=== PATIENT | female | born 1995 | race Caucasian/White ===

== ENCOUNTER → 2016-11-26 | Outpatient (CLI) | payer BC ==
[2016-11-26 13:45] LABS: HEMOGLOBIN 13.9 g/dL (12.0-16.0); RDW COEFFICIENT OF VARIATION 13.1 % (11.5-14.5)
[2016-11-26 13:51] LABS: HEMATOCRIT 41.5 % (37.0-47.0); MEAN CORPUSCULAR HEMOGLOBIN 28.7 PG (27-31); MEAN CORPUSCULAR HGB CONC 33.5 g/dL (33-37); MEAN PLATELET VOLUME 9.9 FL (7.4-12.2); RED BLOOD COUNT 4.85 10^6/uL (4.20-5.40); WHITE BLOOD COUNT 16.07 10^3/uL (4.8-10.8)
[2016-11-26 14:18] LABS: BLOOD UREA NITROGEN 10 mg/dL (7-22); BUN/CREATININE RATIO 14.28 (6-20); CALCIUM 9.7 mg/dL (8.7-10.7); CHLORIDE 105 meq/L (98-112); CREATININE 0.7 mg/dL (0.50-1.20); EST GLOMERULAR FILTRATION > 60 (>60 ml/min/1.73m(2)); GLUCOSE 81 mg/dL (78-110); POTASSIUM 4.1 meq/L (3.8-5.2); SODIUM 139 meq/L (135-145)
[2016-11-26 14:32] LABS: PLATELET MORPHOLOGY COMMENT NORMAL MORPHOLOGY (NORM)
[2016-11-26 14:33] LABS: BAND NEUTROPHILS % 0 % (0-10); BASOPHILS % (MANUAL) 1 % (0-1); EOSINOPHILS % (MANUAL) 0 % (0-8); LYMPHOCYTES % (MANUAL) 37 % (10-50); METAMYELOCYTES % 0 %; MONOCYTES % (MANUAL) 3 % (0-12); MYELOCYTES % 0 %; NEUTROPHILS % (MANUAL) 59 % (50-80); PROMYELOCYTES % 0 %
--- NOTE | 2016-11-26 16:44 | DI ---
CT ABDOMEN SCAN WITH IV CONTRAST, 11/26/2016 3:23 PM : Clinical History: Abdominal pain. Previous Exam: None at this facility. Scans are performed from the lower lung bases through the liver and kidneys with IV contrast. 95 ml o f Isovue 300 was injected IV. No rectal or oral contrast was ordered. The lung bases are clear. The liver is normal. The gallbladder is grossly normal. There is no abnorma lity of the spleen, pancreas, and adrenal glands. Both kidneys are normal in size, shape, position an d contour. There is no hydronephrosis or hydroureter. No renal or ureteral calculi are present. There are no abnormal retrocrural or periaortic nodes. No ascites is present. READING: Normal CT abdomen scan. CT PELVIS SCAN WITH IV CONTRAST, 11/26/2016 3:23 PM: Clinical History: See above. Previous Exam: None at this facility. Scans are performed from just superior to the umbilicus to the symphysis pubis with IV contrast. This is the same bolus of contrast used for the CT scans of the abdomen. Scans through the lower abdomen and pelvis show no masses or abnormal fluid collections. There is no adenopathy. 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 The appendix extends toward the right lower quadrant and has a normal caliber and ewa earance. The maximum diameter is between 7-8 mm. No periserosal inflammatory/infiltrative change is p resent. The remainder of the colon as well as the small bowel and terminal ileum are normal. There is a small umbilical hernia through which only mesenteric fat has herniated. The uterus is retroflexed. The uterus and both ovaries are normal. READING: Normal CT scan of the pelvis.
== END ==
LOC: MOB LAB 13:27
PROVIDERS: ATTEND Physician Assistant Medical
DX: R10.84 Generalized abdominal pain (principal)
CPT/HCPCS: 36415; 74177; 80048; 85007; 87480; 87491; 87510; 87591; 87660

== ENCOUNTER 2016-11-27 14:36 | Inpatient (IN) | payer BC ==
[2016-11-27] MEDS ORDERED: NORMAL SALINE 10 ML SYRINGE FLUSH IVP PRN (14:57)
[2016-11-27] MEDS ORDERED: ONDANSETRON 4 MG/2 ML VIAL IVP ONE (14:57)
[2016-11-27] MEDS ORDERED: MORPHINE SULFATE 2 MG/1 ML IV ONE (14:57)
[2016-11-27] MEDS ORDERED: Sodium Chloride 0.9% 1,000 ML PRIMARY IV ONE (14:57)
--- NOTE | 2016-11-27 14:57 | PDOC ---
Abdomen/Flank HPI - General Chief Complaint: Abdomen Pain Stated Complaint: lower abd pain Date Seen by Provider: 11/27/16 Time Seen by Provider: 14:50 Source: POSITIVE: Patient Exam Limitations: POSITIVE: No limitations Nurse's Notes Reviewed & Considered: Yes - History of Present Illness Initial Comments: The patient is a 21-year-old female who presents to the emergency department with worsening right-sided lower abdominal pain. She states that she had onset of right lower quadrant abdominal pain 2 days ago. She presented to the walk- in clinic yesterday with primarily right lower quadrant pain and lower abdominal pain. She underwent fairly extensive workup including blood work, pelvic exam and urinalysis. Her white blood cell count was found to be elevated at 16,000. Her urine hCG was negative, GC chlamydia was negative, vaginosis profile was negative, and the remainder of her blood work was also normal. She underwent CT scan of the abdomen and pelvis which revealed a normal -appearing appendix measuring 7-8 mm with no inflammatory change. She was sent home with prescriptions for Percocet as well as Zofran. She states that her pain has intensified over the past 24 hours. She has sharp pain in the right lower quadrant and some vague dull pain across her lower abdomen. She also has increased nausea and decreased appetite. She tried to eat a little bit at lunch which caused increased nausea as well as increased pain. She thought she had a low-grade fever at home. She denies urinary symptoms. She has not had any change in bowel movements or blood in her stool. She was having a small amount of brownish vaginal discharge however this seems to have resolved for the most part today. She reports during the pelvic exam yesterday she did not have any apparent tenderness over the uterus when they palpated. She has had 2 previous C-sections and denies any other abdominal surgery. - Patient Home Medications Home Medications: Home Medications Norgestimate-Ethinyl Estradiol [Previfem Tablet] 1 tab PO ASDIR #3 packet Ondansetron [Zofran Odt] 4 mg PO TID #9 tab 11/26/16 Oxycodone HCl/Acetaminophen [Percocet 5-325 Mg Tablet] 1 tab PO Q6H #20 tab - Patient Allergies Allergies/Adverse Reactions: Allergies Allergy/AdvReac Type Severity Reaction Status Date / Time No Known Allergies Allergy Verified 11/27/16 14:45 Past Medical History - heen HEENT History: Denies History Cardiovascular History: Denies History Respiratory History: Asthma Gastrointestinal History: Denies History Genitourinary History: Denies History Endocrine History: Denies History Additional Endocrine History: Per pt borderline diabetic no meds Musculoskeletal History: Denies History Prosthesis or Implant: No Additional Musculoskeletal History: RIGHT KNEE PAIN Neurological History: Denies History Blood Disorders: Denies History Psychiatric History: Denies History History of Sexually Transmitted Diseases: Yes LMP: 11/16/16 Obstetrical History: Delivery Cancer History: Denies History In Past Year Been Physically Harmed or Verbally Threatened: No History of MDRO: No History of Other Communicable Diseases: No Tobacco Use: Never Smoker Alcohol Use: None Substance Use Type: None Previous Surgical History: Yes Type / Date of Surgery: C SECTION Anesthesia Reactions: No Malignant Hyperthermia: No Significant Family History: No pertinent family hx, Hypertension Additional Family History: Father Spina Bifida and Uncle Past Medical History Reviewed: Reviewed - No Changes ROS - Limitations ROS Limitations: No Limitations Constitution: REPORTS: Fever (Low-grade fever at home). DENIES: Chills Cardiovascular: REPORTS: Denies Cardiac Symptoms Respiratory: REPORTS: Denies Resp Symptoms Neurological: REPORTS: Denies Neuro Symptoms Gastrointestinal: REPORTS: Abdominal Pain, Nausea, Vomitting. DENIES: Diarrhea , Black Stools, Bloody Stools, Constipation Endocrine: REPORTS: Denies Symptoms Musculoskeletal: REPORTS: Denies MS Symptoms Genitourinary: REPORTS: Discharge (Some brownish vaginal discharge after her last menstrual period although this is resolving today). DENIES: Dysuria, Flank Pain, Difficulty Urinating Eyes: REPORTS: Denies Symptoms ENT: REPORTS: Denies Symptoms Skin: DENIES: Rash Abdominal/Flank Pain PE - General Appearance General Appearance: POSITIVE: Alert, Cooperative, No Acute Distress - HEENT HEENT: POSITIVE: Head Inspection Nml, Eyes Inspection Nml, Ears Inspection Nml, Oral/Dental Inspect. Nml, Pharynx Inspect. Nml, Dry Mucous Membranes - Neck Neck: POSITIVE: Normal Inspection - Respiratory Respiratory: POSITIVE: No Respiratory Distress, Breath Sounds Normal - Cardiovascular Cardiovascular: POSITIVE: Regular Rate and Rhythm, Heart Sounds Normal Peripheral Pulses: Dorsalis-pedis (R): 2+, Dorsalis-pedis (L): 2+ - Abdomen Abdomen: Soft: (All Quadrants), Normal Bowel Sounds: (All Quadrants) Additional Abdominal Details: She does have tenderness in the right lower quadrant with some localized rebound tenderness, she does have some pain in the right lower quadrant with palpation to the left lower abdomen, she does have pain with heel tap on the right side, no guarding or rigidity. - Back Back: POSITIVE: Normal Inspection. NEGATIVE: CVA Tenderness (R), CVA Tenderness (L) - Skin Skin: POSITIVE: Intact, No Rash - Extremities Extremity: Normal ROM: (All Extremities), Normal Inspection: (All Extremities) - Neurological Neurological: POSITIVE: Affect Apporpriate Abdomen Progress - Results Reviewed by me Xrays/CTs/US Reviewed by me: Yes Discussed with Radiologist: Yes Radiology Findings: CT scan of the abdomen and pelvis done without IV contrast reveals similar findings to yesterday, appendix measuring 7.5 mm with no evidence of inflammatory change, she does have diverticulosis without evidence of diverticulitis, no other acute changes per radiologist. Lab Results Reviewed: Yes Lab Results:: Laboratory Results 11/27/16 11/27/16 Range/Units 14:45 15:06 WBC 14.92 H (4.8-10.8) 10^3/uL RBC 4.63 (4.20-5.40) 10^6/uL Hgb 13.5 (12.0-16.0) g/dL Hct 39.6 (37.0-47.0) % MCV 85.5 (81-99) FL MCH 29.2 (27-31) PG MCHC 34.1 (33-37) g/dL RDW Std Deviation 39.8 (39-50) fL RDW Coeff of [place] 13.0 (11.5-14.5) % Plt Count 408 H (140-350) 10*3/uL MPV 9.6 (7.4-12.2) FL Immature Gran % (Auto) 0.4 (0-5) % Neut % (Auto) 62.2 (50-80) % Lymph % (Auto) 31.2 (10-50) % [place] % (Auto) 4.5 L (5-15) % Eos % (Auto) 1.3 (0-8) % Baso % (Auto) 0.4 (0-1) % Immature Gran # (Auto) 0.06 10*3/UL Neut # (Auto) 9.29 10*3/UL Lymph # (Auto) 4.65 10*3/uL [place] # (Auto) 0.67 (0.3-0.8) 10*3/UL Eos # (Auto) 0.19 10*3/UL Baso # (Auto) 0.06 10*3/UL WBC Morphology Comment Normal morphology (NORM) Plt Morphology Comment Normal morphology (NORM) RBC Morph Comment Normal morphology (NORM) Sodium 137 (135-145) meq/L Potassium 4.1 (3.8-5.2) meq/L Chloride 103 (98-112) meq/L Carbon Dioxide 25 (23-33) meq/L Anion Gap 9 (5-20) BUN 11 (7-22) mg/dL Creatinine 0.7 (0.50-1.20) mg/dL Estimated GFR > 60 (>60 ml/min/1.73m(2)) BUN/Creatinine Ratio 15.71 (6-20) Glucose 101 (78-110) mg/dL Calculated Osmolality 282.0 (267-292) mOsm/kg Calcium 9.1 (8.7-10.7) mg/dL Total Bilirubin 0.3 (0.3-1.2) mg/dL AST 23 (8-39) IU/L ALT 32 (9-52) IU/L Alkaline Phosphatase 72 (38-126) IU/L C-Reactive Protein 1.6 H (0.0-0.9) mg/dL Total Protein 7.3 (6.1-8.0) g/dL Albumin 4.1 (3.5-4.8) g/dL Globulin 3.2 (2.50-4.10) g/dL Albumin/Globulin Ratio 1.20 L (1.3-2.0) mg/g Amylase 65 (30-110) U/L Lipase 37 (23-300) IU/L Serum HCG, Qual Negative Ur Collection Type Voided specimen Urine Color Yellow Urine Clarity Clear (CLEAR) Urine pH 6.5 (5.0-8.5) Ur Specific [place] 1.020 (1.005-1.030) Urine Protein Negative (NEG) mg/dl Urine Glucose (UA) Negative (NEG) mg/dL Urine Ketones Trace (NEG) Urine Occult Blood Small H (NEG) Urine Nitrate Negative (NEG) Urine Bilirubin Negative (NEG) Urine Urobilinogen 0.2 (0.2) EU/dL Ur Leukocyte Esterase Negative (NEG) Urine RBC 1-3 (NONE) /hpf Urine WBC 0-1 (NONE) Ur Squamous Epith Cells Moderate (NONE) Ur Renal Epithelial Cell None (NONE) Urine Crystals None Urine Bacteria Rare (NONE) Urine Casts Rare (NONE) Urine Mucus Few (NONE) Urine Trichomonas None (NONE) Urine Yeast None (NONE) Ur Culture Indicated? Culture not set - Patient's Progress MDM / ED Course: On arrival the patient was rating her pain an 8 out of 10 and she appeared to be uncomfortable. An IV was established and repeat blood work was drawn. She did receive morphine 4 mg IV and Zofran 4 mg IV. Because of her ongoing right lower quadrant abdominal pain and elevated white count I did contact Dr. Thapa who is on-call for general surgery. He recommended repeat CT scan. I discussed this with Dr. Lino and he recommended we repeat this without contrast. This was done and did not show any acute findings. Her appendix still measures between 7 and 8 mm with no obvious inflammatory change, diverticulosis without evidence of diverticulitis and no other acute findings. Her white count is still mildly elevated at 14.5. Current CT findings were discussed with Dr. Thapa and he will evaluate the patient here in the emergency room. Her pain after administration of morphine came down to a 5 out of [address] her nausea improved. Dr. Thapa evaluated the patient and elected to admit the patient for observation and giving her a dose of Invanz 1 g IV. - Consult Counseled: POSITIVE: Patient, Family, RE: Lab Results, RE: Radiology Results, RE : DX Patient Care Time - Estimated PCT Patient Care Time (In Minutes): 35 Vital Signs - Recent Vital Signs Vital Signs: Vital Signs (Last 8 hours) Temp Pulse Resp BP BP Pulse Ox 11/27/16 18:58 97.1 F 78 20 123/84 98 11/27/16 15:50 74 16 100/86 94 11/27/16 14:43 97.9 F 91 18 132/77 96 - VS Reviewed Vital Signs Reviewed: Yes Discharge Clinical Impression: Abdominal pain, Leukocytosis (leucocytosis) Discharge Disposition: Admit to Observation Condition: Stable
[2016-11-27 15:08] LABS: HEMOGLOBIN 13.5 g/dL (12.0-16.0); IMM GRAN % (AUTO) 0.4 % (0-5); IMM GRAN# (AUTO) 0.06 10*3/UL; MONOCYTES % (AUTO) 4.5 % (5-15)
[2016-11-27 15:12] LABS: BASOPHILS # (AUTO) 0.06 10*3/UL; BASOPHILS % (AUTO) 0.4 % (0-1); EOSINOPHILS % (AUTO) 1.3 % (0-8); HEMATOCRIT 39.6 % (37.0-47.0); LYMPHOCYTES # (AUTO) 4.65 10*3/uL; LYMPHOCYTES % (AUTO) 31.2 % (10-50); MEAN CORPUSCULAR HEMOGLOBIN 29.2 PG (27-31); MEAN CORPUSCULAR HGB CONC 34.1 g/dL (33-37); MEAN PLATELET VOLUME 9.6 FL (7.4-12.2); MONOCYTES # (AUTO) 0.67 10*3/UL (0.3-0.8); NEUTROPHILS # (AUTO) 9.29 10*3/UL; NEUTROPHILS % (AUTO) 62.2 % (50-80); RED BLOOD COUNT 4.63 10^6/uL (4.20-5.40); WHITE BLOOD COUNT 14.92 10^3/uL (4.8-10.8)
[2016-11-27 15:20] LABS: AMYLASE 65 U/L (30-110); ASPARTATE AMINO TRANSFERASE 23 IU/L (8-39); BILIRUBIN,TOTAL 0.3 mg/dL (0.3-1.2); BLOOD UREA NITROGEN 11 mg/dL (7-22); BUN/CREATININE RATIO 15.71 (6-20); C-REACTIVE PROTEIN 1.6 mg/dL (0.0-0.9); CALCIUM 9.1 mg/dL (8.7-10.7); CHLORIDE 103 meq/L (98-112); CREATININE 0.7 mg/dL (0.50-1.20); EST GLOMERULAR FILTRATION > 60 (>60 ml/min/1.73m(2)); GLUCOSE 101 mg/dL (78-110); POTASSIUM 4.1 meq/L (3.8-5.2); SODIUM 137 meq/L (135-145); TOTAL PROTEIN 7.3 g/dL (6.1-8.0)
[2016-11-27 15:33] LABS: PLATELET MORPHOLOGY COMMENT NORMAL MORPHOLOGY (NORM)
[2016-11-27 15:34] LABS: CLARITY,URINE CLEAR (CLEAR); URINE SAMPLE TYPE VOIDED SPECIMEN
[2016-11-27 15:35] LABS: BILIRUBIN,URINE NEGATIVE (NEG); GLUCOSE, URINE (UA) NEGATIVE (NEG); LEUKOCYTE ESTERASE ,URINE NEGATIVE (NEG); NITRATE,URINE NEGATIVE (NEG); OCCULT BLOOD,URINE SMALL (NEG); PH,URINE 6.5 (5.0-8.5); PROTEIN,URINE NEGATIVE (NEG); UROBILINOGEN,URINE 0.2 EU/dL (0.2)
[2016-11-27 15:36] LABS: BACTERIA,URINE RARE; SQUAMOUS EPITHELIAL CELL,UR MODERATE; WBC,URINE 0-1
[2016-11-27] MEDS: Ertapenem Inj 1 GM in Sodium Chloride 0.9% 100 ML IV ONE ×2 (18:20→22:26)
--- NOTE | 2016-11-27 18:26 | PDOC ---
History and Physical - History of Present Illness Date and Time of Service: 11/27/2016 6 PM. Chief Complaint: Abdominal pain and nausea. History of Present Illness: Patient is a 21-year-old female who reports problems started on Saturday in the late morning or early afternoon. She had some central abdominal pain. This was associated with nausea. There was no vomiting, fever, chills, diarrhea, or constipation. She ate some. She had a normal bowel movement. She went to bed and slept fairly well through the night. She woke up yesterday with increased pain and nausea. The pain seemed to move a little more to the right side. She was seen in the open access clinic. Her white count was elevated at 16,000. CT abdomen and pelvis showed a malrotation with the cecum in the midline. She had an appendix at 7-8 mm in size without periappendiceal inflammation. She had a pelvic examination that was nontender. Vaginitis panel and chlamydia workup were negative. She was given Percocet and Zofran and sent home. Her urinalysis and test were also unremarkable. She reports she did not sleep well last night. She woke this morning with increased abdominal pain and nausea only. Again the pain was in the right side in an ascending fashion. She was nauseated. She had no appetite. There was no vomiting, fever, chills, diarrhea, or constipation. She presented to the emergency room. She was given some morphine and it decreased her pain from an 8 out of 10 to a 5 out of 10. Labs again the were essentially all unremarkable with the exception of her white count which was still elevated at 14,900. Urinalysis and test were normal. Follow-up CT was done. Again the appendix is seen in the midline. The appendix is bright. There is either calcifications within the appendix or calcium from tums or other antacids. There is no evidence of appendicitis. There is no inflammation in her abdomen. There is no free air or free fluid. She does have a few diverticuli of the colon. There was a moderate amount of stool within the colon. I am asked to see her for evaluation. The present time patient appears quite comfortable. She says her pain is still a 5 out of 10. She still has some mild nausea Past Medical History Medical History: Denies any significant medical problems. Surgical History: 2. Ear tubes. Tobacco Use: Never Smoker Substance Use Type: None Alcohol Use: None Medication / Allergies Home Medications: Home Medications Medication Instructions Recorded Confirmed Type Norgestimate-Ethinyl Estradiol 1 tab PO ASDIR #3 packet 09/25/16 Clinic [Previfem Tablet] Ondansetron [Zofran Odt] 4 mg PO TID #9 tab 11/26/16 Clinic Oxycodone HCl/Acetaminophen 1 tab PO Q6H #20 tab 11/26/16 Clinic [Percocet 5-325 Mg Tablet] Allergies/Adverse Reactions: Allergies Allergy/AdvReac Type Severity Reaction Status Date / Time No Known Allergies Allergy Verified 11/27/16 14:45 Review of Systems - Gastrointestinal Gastrointestinal / Abdominal: REPORTS: Nausea, Abdominal Pain, Poor Appetite, See HPI Exam - Vitals Vital Signs: Vital Signs Temperature 97.9 F Temperature Source Temporal Artery Scan Pulse Rate [Pulse Oximeter 74 Right] Respiratory Rate 16 Blood Pressure [Right Arm] 100/86 Blood Pressure [Left Arm] 132/77 Pulse Ox 94 Oxygen Delivery Method Room Air Height 5 ft 3 in Weight 99.79 kg - General General Appearance: POSITIVE: No Acute Distress, Cooperative - Respiratory Respiratory Exam: POSITIVE: Clear to Auscultation - Bilaterally, Breathing Non Labored - Cardiovascular Cardiovascular Exam: POSITIVE: RRR, No Murmur - GI/Abdominal GI/Abdominal Exam: POSITIVE: Normal Bowel Sounds, Non Distended, Soft, No Masses Additional GI/Abdominal Exam Details: Abdomen is soft. Patient reports tenderness in the left lower quadrant, suprapubic region, and right lower quadrant. There is no guarding or rebound. There is no signs of peritoneal irritation. The exam is certainly not focal at this time. There is no costovertebral angle tenderness. - Rectal Rectal Exam: POSITIVE: Deferred - Exam: POSITIVE: Deferred (Done yesterday in the open access clinic. Nontender. Vaginitis workup negative.) - Neurological Neurological Exam: POSITIVE: Alert, Oriented x 3 - Psychiatric Psychiatric Exam: POSITIVE: Normal Affect, Normal Mood - Integumentary Integumentary Exam: POSITIVE: Normal Color, Warm, Dry, Intact Results - Labs CBC and BMP: 11/27/16 15:06 11/27/16 15:06 Labs - Last 24 Hours: Laboratory Results 11/27/16 11/27/16 Range/Units 14:45 15:06 WBC 14.92 H (4.8-10.8) 10^3/uL RBC 4.63 (4.20-5.40) 10^6/uL Hgb 13.5 (12.0-16.0) g/dL Hct 39.6 (37.0-47.0) % MCV 85.5 (81-99) FL MCH 29.2 (27-31) PG MCHC 34.1 (33-37) g/dL RDW Std Deviation 39.8 (39-50) fL RDW Coeff of [place] 13.0 (11.5-14.5) % Plt Count 408 H (140-350) 10*3/uL MPV 9.6 (7.4-12.2) FL Immature Gran % (Auto) 0.4 (0-5) % Neut % (Auto) 62.2 (50-80) % Lymph % (Auto) 31.2 (10-50) % [place] % (Auto) 4.5 L (5-15) % Eos % (Auto) 1.3 (0-8) % Baso % (Auto) 0.4 (0-1) % Immature Gran # (Auto) 0.06 10*3/UL Neut # (Auto) 9.29 10*3/UL Lymph # (Auto) 4.65 10*3/uL [place] # (Auto) 0.67 (0.3-0.8) 10*3/UL Eos # (Auto) 0.19 10*3/UL Baso # (Auto) 0.06 10*3/UL WBC Morphology Comment Normal morphology (NORM) Plt Morphology Comment Normal morphology (NORM) RBC Morph Comment Normal morphology (NORM) Sodium 137 (135-145) meq/L Potassium 4.1 (3.8-5.2) meq/L Chloride 103 (98-112) meq/L Carbon Dioxide 25 (23-33) meq/L Anion Gap 9 (5-20) BUN 11 (7-22) mg/dL Creatinine 0.7 (0.50-1.20) mg/dL Estimated GFR > 60 (>60 ml/min/1.73m(2)) BUN/Creatinine Ratio 15.71 (6-20) Glucose 101 (78-110) mg/dL Calculated Osmolality 282.0 (267-292) mOsm/kg Calcium 9.1 (8.7-10.7) mg/dL Total Bilirubin 0.3 (0.3-1.2) mg/dL AST 23 (8-39) IU/L ALT 32 (9-52) IU/L Alkaline Phosphatase 72 (38-126) IU/L C-Reactive Protein 1.6 H (0.0-0.9) mg/dL Total Protein 7.3 (6.1-8.0) g/dL Albumin 4.1 (3.5-4.8) g/dL Globulin 3.2 (2.50-4.10) g/dL Albumin/Globulin Ratio 1.20 L (1.3-2.0) mg/g Amylase 65 (30-110) U/L Lipase 37 (23-300) IU/L Serum HCG, Qual Negative Ur Collection Type Voided specimen Urine Color Yellow Urine Clarity Clear (CLEAR) Urine pH 6.5 (5.0-8.5) Ur Specific [place] 1.020 (1.005-1.030) Urine Protein Negative (NEG) mg/dl Urine Glucose (UA) Negative (NEG) mg/dL Urine Ketones Trace (NEG) Urine Occult Blood Small H (NEG) Urine Nitrate Negative (NEG) Urine Bilirubin Negative (NEG) Urine Urobilinogen 0.2 (0.2) EU/dL Ur Leukocyte Esterase Negative (NEG) Urine RBC 1-3 (NONE) /hpf Urine WBC 0-1 (NONE) Ur Squamous Epith Cells Moderate (NONE) Ur Renal Epithelial Cell None (NONE) Urine Crystals None Urine Bacteria Rare (NONE) Urine Casts Rare (NONE) Urine Mucus Few (NONE) Urine Trichomonas None (NONE) Urine Yeast None (NONE) Ur Culture Indicated? Culture not set - Imaging Status: Image Reviewed by Me (And discussed with the radiologist.), Report Reviewed by Me Assessment and Plan - Patient Problems (1) Lower abdominal pain of unknown etiology Current Visit: Yes Status: Acute Priority: High Diagnosis Date: 11/25/16 Comment: Certainly not a focal exam. Certainly not a surgical abdomen. Etiology is unclear. Question gastroenteritis. We'll give the patient a gram of Invanz for her elevated white count. Patient prefers to stay at the hospital and will admit her to observation. We'll check labs in the morning and follow her clinical course. If she fails to improve we'll consider laparoscopy. Again at this time the etiology is unclear but this patient does not have a surgical abdomen. (2) Nausea Current Visit: Yes Status: Acute Diagnosis Date: 11/25/16 Comment: Most likely related to the above. Appropriate medications were ordered.
[2016-11-27] MEDS ORDERED: MORPHINE SULFATE 2 MG/1 ML IVP PRN (18:52)
[2016-11-27] MEDS ORDERED: LIDOCAINE W/ SODIUM BICARB 0.5 ML SYR SUBD PRN (18:52)
[2016-11-27] MEDS: HYDROcodone-APAP 5 MG -325 MG TABLET PO PRN (19:25)
[2016-11-27] MEDS: 1/2NS + 20mEq KCL 1,000 ML PRIMARY IV SCH (19:27)
--- NOTE | 2016-11-27 20:37 | DI ---
CT ABDOMEN SCAN WITHOUT IV CONTRAST, 11/27/2016 3:08 PM : Clinical History: Right lower quadrant pain. Elevated white count. The patient had a negative CT scan of the abdomen and pelvis with IV contrast performed on 11/26/2016. Previous Exam: 11/26/2016. Scans are performed from the lower lung bases through the liver and kidneys without IV contrast. Sagi ttal and coronal reformatted images are generated. The lung bases are clear. The liver is normal. The gallbladder is grossly normal. There is no abnorma lity of the spleen, pancreas, and adrenal glands. Both kidneys are normal in size, shape, position an d contour. There is no hydronephrosis or hydroureter. No renal or ureteral calculi are present. There are no abnormal retrocrural or periaortic nodes. No ascites is present. There has been no change. READING: Normal CT abdomen scan. CT PELVIS SCAN WITHOUT IV CONTRAST, 11/27/2016 3:08 PM : Clinical History: See above. Previous Exam: 11/26/2016. Scans are performed from the inferior margin of the liver and kidneys to the symphysis pubis without IV contrast. There is no free fluid collection and there is no adenopathy. The appendix is normal and is located i n the right lower quadrant although the cecum lies in the mid sagittal plane just inferior to the umb ilicus. The appendix measures 7 mm in greatest diameter and there is no periserosal inflammatory macario ge. The proximal 4 cm of the appendix is of high density in this either represents ingested metallic material such as bismuth, magnesium, or calcium, or this may represent fecaliths. The small bowel, te rminal ileum, and ileocecal valve are normal. The colon has a normal appearance although there are wh at appear to represent diverticula in the transverse and descending colon without evidence of diverti culitis. There is a small umbilical hernia through which only mesenteric fat has herniated. There is a transverse indentation of the skin and subcutaneous fat overlying the pelvis with irregularity of t he inferior aspect of the rectus abdominis muscle consistent with a prior . The uterus is re troflexed but normal. The ovaries are also normal. READING: Normal CT pelvis scan. The appendix has a normal appearance and is unchanged from the previous study.
[2016-11-28] MEDS: 1/2NS + 20mEq KCL 1,000 ML PRIMARY IV SCH ×3 (05:21→15:38)
[2016-11-28] MEDS: HYDROcodone-APAP 5 MG -325 MG TABLET PO PRN ×2 (05:22→11:48)
[2016-11-28 06:11] LABS: BASOPHILS # (AUTO) 0.03 10*3/UL; BASOPHILS % (AUTO) 0.3 % (0-1); EOSINOPHILS % (AUTO) 2.6 % (0-8); HEMATOCRIT 38.5 % (37.0-47.0); HEMOGLOBIN 12.5 g/dL (12.0-16.0); IMM GRAN % (AUTO) 0.3 % (0-5); IMM GRAN# (AUTO) 0.03 10*3/UL; LYMPHOCYTES # (AUTO) 4.71 10*3/uL; LYMPHOCYTES % (AUTO) 46.4 % (10-50); MEAN CORPUSCULAR HEMOGLOBIN 28.2 PG (27-31); MEAN CORPUSCULAR HGB CONC 32.5 g/dL (33-37); MEAN PLATELET VOLUME 9.6 FL (7.4-12.2); MONOCYTES # (AUTO) 0.65 10*3/UL (0.3-0.8); MONOCYTES % (AUTO) 6.4 % (5-15); NEUTROPHILS # (AUTO) 4.46 10*3/UL; RED BLOOD COUNT 4.44 10^6/uL (4.20-5.40); WHITE BLOOD COUNT 10.14 10^3/uL (4.8-10.8)
[2016-11-28 06:13] LABS: PLATELET MORPHOLOGY COMMENT NORMAL MORPHOLOGY (NORM)
[2016-11-28 06:21] LABS: AMYLASE 40 U/L (30-110); ASPARTATE AMINO TRANSFERASE 15 IU/L (8-39); BILIRUBIN,TOTAL 0.2 mg/dL (0.3-1.2); BLOOD UREA NITROGEN 6 mg/dL (7-22); CALCIUM 8.4 mg/dL (8.7-10.7); CHLORIDE 108 meq/L (98-112); CREATININE 0.6 mg/dL (0.50-1.20); EST GLOMERULAR FILTRATION > 60 (>60 ml/min/1.73m(2)); GLUCOSE 83 mg/dL (78-110); POTASSIUM 4.2 meq/L (3.8-5.2); SODIUM 138 meq/L (135-145); TOTAL PROTEIN 6.1 g/dL (6.1-8.0)
[2016-11-28] MEDS: ONDANSETRON 4 MG/2 ML VIAL IVP PRN ×2 (08:12→14:34)
[2016-11-28] MEDS: NORGESTIMATE ETHINYL ESTRADIOL PO SCH (09:46)
--- NOTE | 2016-11-28 10:59 | PDOC(PROG) ---
Date and Time of Service: 11/28/2016. 9:30 AM Interval History: Patient reports she feels about the same as yesterday. Still has a dull ache across her lower abdomen. When she moves or coughs or sneezes she has a sharp pain. She is still nauseated. She has no appetite. She has had some clear liquids but she reports not much. She is passing gas. She has not had a bowel movement. No fever or chills. No new complaints. Objective : Data - Labs CBC and BMP: 11/28/16 06:00 11/28/16 06:00 Labs - Last 24 Hours: Laboratory Results 11/28/16 Range/Units 06:00 WBC 10.14 (4.8-10.8) 10^3/uL RBC 4.44 (4.20-5.40) 10^6/uL Hgb 12.5 (12.0-16.0) g/dL Hct 38.5 (37.0-47.0) % MCV 86.7 (81-99) FL MCH 28.2 (27-31) PG MCHC 32.5 L (33-37) g/dL RDW Std Deviation 40.6 (39-50) fL RDW Coeff of Marline 13.0 (11.5-14.5) % Plt Count 351 H (140-350) 10*3/uL MPV 9.6 (7.4-12.2) FL Immature Gran % (Auto) 0.3 (0-5) % Neut % (Auto) 44.0 L (50-80) % Lymph % (Auto) 46.4 (10-50) % [place] % (Auto) 6.4 (5-15) % Eos % (Auto) 2.6 (0-8) % Baso % (Auto) 0.3 (0-1) % Immature Gran # (Auto) 0.03 10*3/UL Neut # (Auto) 4.46 10*3/UL Lymph # (Auto) 4.71 10*3/uL [place] # (Auto) 0.65 (0.3-0.8) 10*3/UL Eos # (Auto) 0.26 10*3/UL Baso # (Auto) 0.03 10*3/UL WBC Morphology Comment Normal morphology (NORM) Plt Morphology Comment Normal morphology (NORM) RBC Morph Comment Normal morphology (NORM) Sodium 138 (135-145) meq/L Potassium 4.2 (3.8-5.2) meq/L Chloride 108 (98-112) meq/L Carbon Dioxide 24 (23-33) meq/L Anion Gap 6 (5-20) BUN 6 L (7-22) mg/dL Creatinine 0.6 (0.50-1.20) mg/dL Estimated GFR > 60 (>60 ml/min/1.73m(2)) BUN/Creatinine Ratio 10.00 (6-20) Glucose 83 (78-110) mg/dL Calculated Osmolality 282.0 (267-292) mOsm/kg Calcium 8.4 L (8.7-10.7) mg/dL Total Bilirubin 0.2 L (0.3-1.2) mg/dL AST 15 (8-39) IU/L ALT 33 (9-52) IU/L Alkaline Phosphatase 61 (38-126) IU/L Total Protein 6.1 (6.1-8.0) g/dL Albumin 3.3 L (3.5-4.8) g/dL Globulin 2.8 (2.50-4.10) g/dL Albumin/Globulin Ratio 1.10 L (1.3-2.0) mg/g Amylase 40 (30-110) U/L Lipase 25 (23-300) IU/L - Vital Signs Vital Signs and I&O: Vital Signs - Last Taken Temperature 97.6 F 11/28/16 07:51 Pulse Rate 85 11/28/16 07:51 Respiratory Rate 18 11/28/16 07:51 Blood Pressure 114/75 11/28/16 07:51 Pulse Ox 93 11/28/16 07:51 Intake and Output (24hr x 4 totals) 11/26/16 11/27/16 11/28/16 11/29/16 05:59 05:59 05:59 05:59 Intake Total 3423 140 Output Total 2250 875 Balance 1173 -735 Objective : Exam - General General Appearance: No Acute Distress, Cooperative - Respiratory Respiratory Exam: Clear to Auscultation - Bilaterally, Breathing Non Labored - Cardiovascular Cardiovascular Exam: RRR, No Murmur - GI/Abdominal GI/Abdominal Exam: Normal Bowel Sounds, Non Distended, Soft, No Masses Additional GI/Abdominal Exam Details: Abdomen is soft with normoactive bowel tones. No upper abdominal tenderness. Patient reports tenderness throughout her lower abdomen including the right lower quadrant, suprapubic region, and left lower quadrant. She says is very tender but she talks normally while I am palpating her abdomen. There is no guarding or rebound. She appears quite comfortable. She says her pain is a 5 out of 10 but she acts more like a 2 or 3 out of 10. There is no rebound tenderness. There are no peritoneal signs. He does have an umbilical hernia. It is not tender. Her scar is well-healed. - Neurological Neurological Exam: Alert, Oriented x 3 - Psychiatric Psychiatric Exam: Normal Affect, Normal Mood - Integumentary Integumentary Exam: Normal Color, Warm, Dry, Intact Assessment and Plan - Patient Problems (1) Lower abdominal pain of unknown etiology Current Visit: Yes Status: Acute Priority: High Diagnosis Date: 11/25/16 Comment: Patient reports her pain is more significant than it appears on clinical exam and patient observation. The etiology remains unclear. Her white count is now in the normal range. The remainder of her lab is normal. She does not have a surgical abdomen at this time. Patient did have a lot of stool in the colon and a full stomach at the time of her CAT scan last night. She has not had a bowel movement. We'll try some laxatives today. We'll check labs in the morning and reevaluate her. If she is unable to be discharged we' ll have to consider laparoscopy to see if I can determine the etiology. On CT scan x2 no fluid was seen. I still wonder about a small hemorrhagic cyst with lower abdominal irritation. Still could be a gastroenteritis. The appendix has appeared normal on 2 different CAT scans. She doesn't act like she has appendicitis and it's been 3 days since the onset of her symptoms so I would expect that to declare by now. Urinalysis 2 unremarkable. test 2 negative. Pelvic exam negative. Chlamydia negative. Vaginosis panel negative. (2) Nausea Current Visit: Yes Status: Acute Diagnosis Date: 11/25/16 Comment: Persists. I believe related to the above.
[2016-11-28] MEDS ORDERED: BISACODYL 5 MG TABLET PO ONE (11:10)
[2016-11-28] MEDS ORDERED: 1/2NS + 20mEq KCL 1,000 ML PRIMARY IV SCH (11:15)
[2016-11-28] MEDS: KETOROLAC 30 MG/1 ML VIAL IVP SCH ×2 (12:58→19:43)
[2016-11-28] MEDS ORDERED: Influenza 16-17 Vaccine(4yrs+) 45 MCG/0.5 ML SYRINGE IM ONE (14:45)
[2016-11-28] MEDS ORDERED: PROCHLORPERAZINE MALEATE RECTAL ONE (14:47)
[2016-11-28] MEDS ORDERED: PROCHLORPERAZINE MALEATE RECTAL PRN (14:48)
[2016-11-28] MEDS: MORPHINE SULFATE 2 MG/1 ML IVP PRN ×3 (14:59→21:15)
[2016-11-28] MEDS ORDERED: Ertapenem Inj 1 GM in Sodium Chloride 0.9% 100 ML IV SCH (18:15)
--- NOTE | 2016-11-28 18:32 | PDOC(PROG) ---
Date and Time of Service: 11/28/2016 6:15 PM Interval History: Patient felt she had a little more energy around noon. She got up and took a shower. She went back to bed and her lower abdominal pain increased. She became very nauseated and for the first time vomited. She had an emesis of approximately 600 mL. This was mostly clear liquids which she had taken in. It was not feculent. She developed some right upper quadrant pain at that time. She is not having heartburn. She is passing gas. She has not had a bowel movement. Patient feels the increased pain led to the increased nausea which led to the vomiting. The vomiting actually initially caused an increase of her abdominal pain. It did not decrease it. That pain has decreased with a morphine injection. Much She feels better now. She still has no appetite. Objective : Data - Labs CBC and BMP: 11/28/16 06:00 11/28/16 06:00 Labs - Last 24 Hours: Laboratory Results 11/28/16 Range/Units 06:00 WBC 10.14 (4.8-10.8) 10^3/uL RBC 4.44 (4.20-5.40) 10^6/uL Hgb 12.5 (12.0-16.0) g/dL Hct 38.5 (37.0-47.0) % MCV 86.7 (81-99) FL MCH 28.2 (27-31) PG MCHC 32.5 L (33-37) g/dL RDW Std Deviation 40.6 (39-50) fL RDW Coeff of Marline 13.0 (11.5-14.5) % Plt Count 351 H (140-350) 10*3/uL MPV 9.6 (7.4-12.2) FL Immature Gran % (Auto) 0.3 (0-5) % Neut % (Auto) 44.0 L (50-80) % Lymph % (Auto) 46.4 (10-50) % [place] % (Auto) 6.4 (5-15) % Eos % (Auto) 2.6 (0-8) % Baso % (Auto) 0.3 (0-1) % Immature Gran # (Auto) 0.03 10*3/UL Neut # (Auto) 4.46 10*3/UL Lymph # (Auto) 4.71 10*3/uL [place] # (Auto) 0.65 (0.3-0.8) 10*3/UL Eos # (Auto) 0.26 10*3/UL Baso # (Auto) 0.03 10*3/UL WBC Morphology Comment Normal morphology (NORM) Plt Morphology Comment Normal morphology (NORM) RBC Morph Comment Normal morphology (NORM) Sodium 138 (135-145) meq/L Potassium 4.2 (3.8-5.2) meq/L Chloride 108 (98-112) meq/L Carbon Dioxide 24 (23-33) meq/L Anion Gap 6 (5-20) BUN 6 L (7-22) mg/dL Creatinine 0.6 (0.50-1.20) mg/dL Estimated GFR > 60 (>60 ml/min/1.73m(2)) BUN/Creatinine Ratio 10.00 (6-20) Glucose 83 (78-110) mg/dL Calculated Osmolality 282.0 (267-292) mOsm/kg Calcium 8.4 L (8.7-10.7) mg/dL Total Bilirubin 0.2 L (0.3-1.2) mg/dL AST 15 (8-39) IU/L ALT 33 (9-52) IU/L Alkaline Phosphatase 61 (38-126) IU/L Total Protein 6.1 (6.1-8.0) g/dL Albumin 3.3 L (3.5-4.8) g/dL Globulin 2.8 (2.50-4.10) g/dL Albumin/Globulin Ratio 1.10 L (1.3-2.0) mg/g Amylase 40 (30-110) U/L Lipase 25 (23-300) IU/L - Vital Signs Vital Signs and I&O: Vital Signs - Last Taken Temperature 97.4 F 11/28/16 17:00 Pulse Rate 85 11/28/16 17:00 Respiratory Rate 14 11/28/16 17:00 Blood Pressure 113/70 11/28/16 17:00 Pulse Ox 95 11/28/16 17:00 Intake and Output (24hr x 4 totals) 11/26/16 11/27/16 11/28/16 11/29/16 05:59 05:59 05:59 05:59 Intake Total 3423 8145 Output Total 2250 2475 Balance 1173 240 Objective : Exam - General General Appearance: No Acute Distress, Cooperative - Respiratory Respiratory Exam: Clear to Auscultation - Bilaterally, Breathing Non Labored - Cardiovascular Cardiovascular Exam: RRR, No Murmur - GI/Abdominal GI/Abdominal Exam: Normal Bowel Sounds, Non Distended, Soft Additional GI/Abdominal Exam Details: Lower abdominal tenderness. Maximal suprapubic. The appendix on her latest CT was in the midline. There is also right and left lower quadrant tenderness. There is no guarding, rebound, or peritoneal signs. It is certainly not a rigid abdomen. - Neurological Neurological Exam: Alert, Oriented x 3 - Psychiatric Psychiatric Exam: Normal Affect, Normal Mood Assessment and Plan - Patient Problems (1) Lower abdominal pain of unknown etiology Current Visit: Yes Status: Acute Priority: High Diagnosis Date: 11/25/16 Comment: Etiology remains unclear. We don't seem to be making much progress. We will continue with the current treatment overnight. If she is still requiring pain medicine and is nauseated in the morning and is not ready to go home I think we will need to proceed with a laparoscopy/laparotomy. I would take out her appendix and carefully examine her lower abdomen.The procedure has been discussed with the patient in complete yet simple terms including benefits , risks, and alternatives. All questions have been answered. Informed consent has been obtained. Hopefully she will feel better in the morning. Labs have been ordered. (2) Nausea Current Visit: Yes Status: Acute Diagnosis Date: 11/25/16 Comment: Secondary to above.
[2016-11-28] MEDS ORDERED: BISACODYL 10 MG SUPPOSITORY RECTAL ONE (18:40)
[2016-11-28] MEDS: Pantoprazole Inj 40 MG in Normal Saline Flush 10 ML IVP SCH (19:42)
[2016-11-28] MEDS: NORMAL SALINE 10 ML SYRINGE FLUSH IVP PRN ×2 (19:43→21:16)
[2016-11-28] MEDS: DOCUSATE 100 MG CAPSULE PO SCH (21:15)
[2016-11-29] MEDS: 1/2NS + 20mEq KCL 1,000 ML PRIMARY IV SCH ×2 (02:16→13:59)
[2016-11-29] MEDS: MORPHINE SULFATE 2 MG/1 ML IVP PRN (06:24)
[2016-11-29 06:28] LABS: BASOPHILS # (AUTO) 0.03 10*3/UL; BASOPHILS % (AUTO) 0.3 % (0-1); EOSINOPHILS % (AUTO) 1.6 % (0-8); HEMATOCRIT 40.2 % (37.0-47.0); HEMOGLOBIN 13.1 g/dL (12.0-16.0); IMM GRAN % (AUTO) 0.3 % (0-5); IMM GRAN# (AUTO) 0.04 10*3/UL; LYMPHOCYTES # (AUTO) 3.84 10*3/uL; LYMPHOCYTES % (AUTO) 33.6 % (10-50); MEAN CORPUSCULAR HEMOGLOBIN 28.1 PG (27-31); MEAN CORPUSCULAR HGB CONC 32.6 g/dL (33-37); MEAN PLATELET VOLUME 9.6 FL (7.4-12.2); MONOCYTES # (AUTO) 0.64 10*3/UL (0.3-0.8); MONOCYTES % (AUTO) 5.6 % (5-15); NEUTROPHILS % (AUTO) 58.6 % (50-80); RDW COEFFICIENT OF VARIATION 12.9 % (11.5-14.5); RED BLOOD COUNT 4.66 10^6/uL (4.20-5.40); WHITE BLOOD COUNT 11.43 10^3/uL (4.8-10.8)
[2016-11-29 06:30] LABS: PLATELET MORPHOLOGY COMMENT NORMAL MORPHOLOGY (NORM)
[2016-11-29] MEDS: ONDANSETRON 4 MG/2 ML VIAL IVP PRN (06:33)
[2016-11-29 06:38] LABS: ASPARTATE AMINO TRANSFERASE 17 IU/L (8-39); BILIRUBIN,TOTAL 0.3 mg/dL (0.3-1.2); BLOOD UREA NITROGEN 6 mg/dL (7-22); BUN/CREATININE RATIO 8.57 (6-20); CALCIUM 8.7 mg/dL (8.7-10.7); CHLORIDE 106 meq/L (98-112); CREATININE 0.7 mg/dL (0.50-1.20); EST GLOMERULAR FILTRATION > 60 (>60 ml/min/1.73m(2)); GLUCOSE 77 mg/dL (78-110); POTASSIUM 4.3 meq/L (3.8-5.2); SODIUM 138 meq/L (135-145); TOTAL PROTEIN 6.6 g/dL (6.1-8.0)
[2016-11-29] MEDS: NORGESTIMATE ETHINYL ESTRADIOL PO SCH (08:37)
[2016-11-29] MEDS: Pantoprazole Inj 40 MG in Normal Saline Flush 10 ML IVP SCH (08:44)
[2016-11-29] MEDS ORDERED: Influenza 16-17 Vaccine(4yrs+) 45 MCG/0.5 ML SYRINGE IM ONE (10:00)
[2016-11-29] MEDS: DOCUSATE 100 MG CAPSULE PO SCH ×2 (10:12→20:40)
[2016-11-29] MEDS ORDERED: NORMAL SALINE 10 ML SYRINGE FLUSH IVP PRN ×2 (10:39→12:11)
[2016-11-29] MEDS ORDERED: Lactated Ringers 1,000 ML PRIMARY IV ONE ×2 (10:43→11:12)
[2016-11-29] MEDS ORDERED: Lactated Ringers 1,000 ML PRIMARY IV SCH ×2 (10:45→12:15)
--- NOTE | 2016-11-29 10:52 | PDOC(PROG) ---
Date and Time of Service: 11/29/2016 10:30 AM Interval History: Patient reports she has persistent abdominal pain. Worse in the suprapubic region and in both lower quadrants. It is an ache at baseline and when she ambulates it's a sharp pain. She is still nauseated. She has not vomited again. She is passing gas. She had a bowel movement after the laxatives. She has no appetite. She does not feel like there is been any significant improvement after 48 hours of conservative therapy. Her white count is up a little bit today to 11.43. As per my prior note we discussed diagnostic laparoscopy with planned laparoscopic appendectomy. We also discussed the possibility of an oophorectomy. She is not necessarily done having children so she would like to keep her ovary if possible. She understands we will do what is necessary to not remove it. She also understands she may need an open laparotomy. Objective : Data - Labs CBC and BMP: 11/29/16 06:20 11/29/16 06:20 Labs - Last 24 Hours: Laboratory Results 11/29/16 Range/Units 06:20 WBC 11.43 H (4.8-10.8) 10^3/uL RBC 4.66 (4.20-5.40) 10^6/uL Hgb 13.1 (12.0-16.0) g/dL Hct 40.2 (37.0-47.0) % MCV 86.3 (81-99) FL MCH 28.1 (27-31) PG MCHC 32.6 L (33-37) g/dL RDW Std Deviation 39.6 (39-50) fL RDW Coeff of Marline 12.9 (11.5-14.5) % Plt Count 359 H (140-350) 10*3/uL MPV 9.6 (7.4-12.2) FL Immature Gran % (Auto) 0.3 (0-5) % Neut % (Auto) 58.6 (50-80) % Lymph % (Auto) 33.6 (10-50) % [place] % (Auto) 5.6 (5-15) % Eos % (Auto) 1.6 (0-8) % Baso % (Auto) 0.3 (0-1) % Immature Gran # (Auto) 0.04 10*3/UL Neut # (Auto) 6.70 10*3/UL Lymph # (Auto) 3.84 10*3/uL [place] # (Auto) 0.64 (0.3-0.8) 10*3/UL Eos # (Auto) 0.18 10*3/UL Baso # (Auto) 0.03 10*3/UL WBC Morphology Comment Normal morphology (NORM) Plt Morphology Comment Normal morphology (NORM) RBC Morph Comment Normal morphology (NORM) Sodium 138 (135-145) meq/L Potassium 4.3 (3.8-5.2) meq/L Chloride 106 (98-112) meq/L Carbon Dioxide 24 (23-33) meq/L Anion Gap 8 (5-20) BUN 6 L (7-22) mg/dL Creatinine 0.7 (0.50-1.20) mg/dL Estimated GFR > 60 (>60 ml/min/1.73m(2)) BUN/Creatinine Ratio 8.57 (6-20) Glucose 77 L (78-110) mg/dL Calculated Osmolality 282.0 (267-292) mOsm/kg Calcium 8.7 (8.7-10.7) mg/dL Total Bilirubin 0.3 (0.3-1.2) mg/dL AST 17 (8-39) IU/L ALT 27 (9-52) IU/L Alkaline Phosphatase 69 (38-126) IU/L Total Protein 6.6 (6.1-8.0) g/dL Albumin 3.5 (3.5-4.8) g/dL Globulin 3.0 (2.50-4.10) g/dL Albumin/Globulin Ratio 1.10 L (1.3-2.0) mg/g - Vital Signs Vital Signs and I&O: Vital Signs - Last Taken Temperature 98.1 F 11/29/16 08:02 Pulse Rate 89 11/29/16 08:02 Respiratory Rate 16 11/29/16 08:02 Blood Pressure 121/78 11/29/16 08:02 Pulse Ox 95 11/29/16 08:02 Intake and Output (24hr x 4 totals) 11/27/16 11/28/16 11/29/16 11/30/16 05:59 05:59 05:59 05:59 Intake Total 0206 2866 1437 Output Total 6129 2900 1600 Balance 1173 -185 -163 Objective : Exam - General General Appearance: No Acute Distress, Cooperative - Respiratory Respiratory Exam: Clear to Auscultation - Bilaterally, Breathing Non Labored - Cardiovascular Cardiovascular Exam: RRR, No Murmur - GI/Abdominal GI/Abdominal Exam: Normal Bowel Sounds, Non Distended, Soft Additional GI/Abdominal Exam Details: Abdomen is obese. It is soft. There is maximal suprapubic tenderness with bilateral lower quadrant tenderness. No guarding, no rebound, no peritoneal signs. - Neurological Neurological Exam: Alert, Oriented x 3 - Psychiatric Psychiatric Exam: Normal Affect, Normal Mood Assessment and Plan - Patient Problems (1) Lower abdominal pain of unknown etiology Current Visit: Yes Status: Acute Priority: High Diagnosis Date: 11/25/16 Comment: As no improvement on conservative therapy we will proceed with diagnostic laparoscopy and planned laparoscopic appendectomy. Other interventions as indicated at the time of the surgery. Possibility of an oophorectomy has been discussed. The possibility of an open laparotomy has been discussed. The procedure has been discussed with the patient in complete yet simple terms including benefits, risks, and alternatives. All questions have been answered. Informed consent has been obtained. (2) Nausea Current Visit: Yes Status: Acute Diagnosis Date: 11/25/16 Comment: Secondary to above.
[2016-11-29] MEDS ORDERED: BUPivacaine Inj 0.25% PF - 10ml vial ONE ×3 (11:00→12:08)
[2016-11-29] MEDS ORDERED: LIDOCAINE MPF 2% - 5 ML (20 MG/1 ML) ONE (11:03)
[2016-11-29] MEDS ORDERED: MIDAZOLAM 5 MG/1 ML ONE (11:04)
[2016-11-29] MEDS ORDERED: fentaNYL Inj 250 MCG/5 ML VIAL ONE (11:04)
[2016-11-29] MEDS ORDERED: LIDOCAINE W/ SODIUM BICARB 0.5 ML SYR ONE (11:12)
[2016-11-29] MEDS ORDERED: HYDROmorphone 2 MG/1 ML ONE (11:19)
[2016-11-29] MEDS ORDERED: ONDANSETRON 4 MG/2 ML VIAL ONE (11:21)
[2016-11-29] MEDS ORDERED: DEXAMETHASONE PF 10 MG/1 ML VIAL ONE (11:22)
[2016-11-29] MEDS ORDERED: KETAMINE 100 MG/1 ML - 5 ML ONE (11:50)
[2016-11-29] MEDS ORDERED: HYDROmorphone 2 MG/1 ML IVP PRN (12:11)
[2016-11-29] MEDS ORDERED: KETOROLAC 30 MG/1 ML VIAL ONE (12:32)
[2016-11-29] MEDS ORDERED: SUGAMMADEX SODIUM 200 MG/2 ML VIAL IV ONE (12:33)
--- NOTE | 2016-11-29 13:03 | GEN.OPNOTE ---
Operative Note Surgery Date: 11/29/16 Preoperative Diagnosis: Abdominal pain. Nausea. Calcifications within the appendix. Postoperative Diagnosis: Same. Procedure: #1 diagnostic laparoscopy. #2 laparoscopic appendectomy. Surgeon: Chance Thapa MD Care Coordinator: Jerome Souza MD Anesthesia Provider: Edwar Castellanos CRNA Anesthesia Type: General Estimated Blood Loss (mL): 5 Fluids: 1400 mL of crystalloid. 30 mg of IV Toradol at the end of the procedure. Pathology: Specimen to pathology. Indications: Patient with persisting suprapubic and bilateral lower quadrant abdominal pain. She is nauseated. She has no appetite. Her white count was elevated and then dropped to normal and then was slightly elevated again this a.m. Patient had been on 48 hours of IV antibiotics. Patient had multiple blood draws which were unremarkable. She had several serum test which were unremarkable. She had a pelvic exam with appropriate studies and that was all unremarkable. She had 2 urinalyses which were unremarkable.. 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 As she was failing to improve on conservative therapy we proceeded with diagnostic laparoscopy with planned appendectomy. Findings: Suprapubic scar tissue secondary to 2 prior C-sections. The sigmoid colon had some scar tissue to the lateral abdominal wall. Uterus was unremarkable. Both ovaries were visualized and were unremarkable. There was no blood, fluid, or purulent exudate in the pelvis. The colon was visually unremarkable. 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 The appendix was generous in size with multiple filling defects. The upper abdomen showed the liver, gallbladder, and stomach to be unremarkable. Complications: None. Operative Summary: The patient was taken to the operating suite and placed on the operating table in a supine position. Her legs were placed in universal stirrups. Following induction of adequate general anesthetic the abdomen was prepped and draped in a sterile fashion. A surgical timeout was performed. The infraumbilical region was infiltrated with 1/2% Marcaine with epinephrine. A small incision was made. The abdominal wall was elevated. A Veress needle was placed without apparent injury and a pneumoperitoneum was induced. The Veress needle was withdrawn. A 10 mm Visiport was placed under direct visualization. The laparoscope was inserted. Patient was placed in in Trendelenburg. A 5 mm trocar was placed in the suprapubic region in the midline after Marcaine injection. Examination was as previously described in the findings. Uterus, ovaries, fallopian tubes, intra-abdominal structures were all unremarkable. There is a appendix with multiple filling defects. The cecum was about in the midline. Attention was turned to performing a laparoscopic appendectomy. A 10 mm trocar was placed in the left lower quadrant after Marcaine injection. This was placed under direct visualization. The tip of the appendix was grasped and elevated. A gyrus was used to transect the mesoappendix to the base of the cecum. Hemostasis was assured. 2 Endoloops were placed over the appendix. 2 Endoloops were placed and tied securely. The appendix was transected with the gyrus and placed in an Endopouch. It was brought out through the left lower quadrant trocar site without difficulty. Irrigation and suctioning were performed. Final check for hemostasis was made. Trochars were all removed under direct visualization. The umbilical trocar site was closed with a simple stitch of 0 Vicryl. No other trocar sites required fascial closure. The abdominal wall was cleansed. All incisions were closed with inverted interrupted or running subcuticular 4-0 Monocryl followed by Mastisol, Steri- Strips, and a Band-Aid dressing. The patient tolerated all aspects of the procedure well without complication. She was taken to recovery room in stable condition. All counts were correct. Patient Problems - Patient Problem List (1) Lower abdominal pain of unknown etiology Current Visit: Yes Status: Acute Diagnosis Date: 11/25/16 Priority: High (2) Nausea Current Visit: Yes Status: Acute Diagnosis Date: 11/25/16
[2016-11-29] MEDS ORDERED: ONDANSETRON 4 MG/2 ML VIAL IVP PRN (13:39)
[2016-11-29] MEDS ORDERED: PROCHLORPERAZINE MALEATE RECTAL PRN (13:39)
[2016-11-29] MEDS ORDERED: MORPHINE SULFATE 2 MG/1 ML IVP PRN (13:39)
[2016-11-29] MEDS: Lactated Ringers 1,000 ML PRIMARY IV SCH (15:07)
--- NOTE | 2016-11-29 16:15 | PDOC(PROG) ---
Date and Time of Service: 11/29/2016 for 10 PM Interval History: Reports she is sore. A different kind of sore than she had preop. This feels like muscular soreness. The deep inside pain has resolved. The nausea has resolved. She is resting comfortably in bed and drinking clear liquids. Objective : Data - Labs CBC and BMP: 11/29/16 06:20 11/29/16 06:20 - Vital Signs Vital Signs and I&O: Vital Signs - Last Taken Temperature 98 F 11/29/16 14:35 Pulse Rate 80 11/29/16 14:35 Respiratory Rate 16 11/29/16 14:35 Blood Pressure 117/76 11/29/16 14:35 Pulse Ox 97 11/29/16 14:35 Intake and Output (24hr x 4 totals) 11/27/16 11/28/16 11/29/16 11/30/16 05:59 05:59 05:59 05:59 Output Total 1050 Balance -1050 Objective : Exam - General General Appearance: No Acute Distress, Cooperative - Respiratory Respiratory Exam: Clear to Auscultation - Bilaterally, Breathing Non Labored - Cardiovascular Cardiovascular Exam: No Murmur, Tachycardia (Slightly tachycardic) - GI/Abdominal GI/Abdominal Exam: Non Distended, Soft Additional GI/Abdominal Exam Details: Bandages clean and dry and intact. Incisional tenderness only. Assessment and Plan - Patient Problems (1) Lower abdominal pain of unknown etiology Current Visit: Yes Status: Acute Priority: High Diagnosis Date: 11/25/16 Comment: Status post diagnostic laparoscopy with laparoscopic appendectomy. Improved. Continue postoperative care. (2) Nausea Current Visit: Yes Status: Acute Diagnosis Date: 11/25/16 Comment: Patient reports resolved.
[2016-11-29] MEDS: KETOROLAC 30 MG/1 ML VIAL IVP SCH (19:18)
[2016-11-29] MEDS: HYDROcodone-APAP 5 MG -325 MG TABLET PO PRN (20:42)
[2016-11-30] MEDS: KETOROLAC 30 MG/1 ML VIAL IVP SCH ×3 (02:12→12:50)
[2016-11-30] MEDS: HYDROcodone-APAP 5 MG -325 MG TABLET PO PRN ×3 (02:13→12:13)
[2016-11-30] MEDS: NORMAL SALINE 10 ML SYRINGE FLUSH IVP PRN ×2 (02:14→12:50)
[2016-11-30] MEDS: Lactated Ringers 1,000 ML PRIMARY IV SCH (02:15)
[2016-11-30 06:33] LABS: BASOPHILS # (AUTO) 0.02 10*3/UL; BASOPHILS % (AUTO) 0.1 % (0-1); EOSINOPHILS % (AUTO) 0.1 % (0-8); HEMATOCRIT 36.8 % (37.0-47.0); HEMOGLOBIN 12.2 g/dL (12.0-16.0); IMM GRAN % (AUTO) 0.2 % (0-5); IMM GRAN# (AUTO) 0.03 10*3/UL; LYMPHOCYTES # (AUTO) 3.56 10*3/uL; LYMPHOCYTES % (AUTO) 22.8 % (10-50); MEAN CORPUSCULAR HEMOGLOBIN 28.4 PG (27-31); MEAN CORPUSCULAR HGB CONC 33.2 g/dL (33-37); MEAN PLATELET VOLUME 9.8 FL (7.4-12.2); MONOCYTES % (AUTO) 5.8 % (5-15); RDW COEFFICIENT OF VARIATION 12.9 % (11.5-14.5); WHITE BLOOD COUNT 15.62 10^3/uL (4.8-10.8)
[2016-11-30 06:36] LABS: PLATELET MORPHOLOGY COMMENT NORMAL MORPHOLOGY (NORM)
[2016-11-30 06:43] LABS: BLOOD UREA NITROGEN 8 mg/dL (7-22); BUN/CREATININE RATIO 13.33 (6-20); CALCIUM 8.8 mg/dL (8.7-10.7); CHLORIDE 106 meq/L (98-112); CREATININE 0.6 mg/dL (0.50-1.20); EST GLOMERULAR FILTRATION > 60 (>60 ml/min/1.73m(2)); GLUCOSE 108 mg/dL (78-110); POTASSIUM 4.3 meq/L (3.8-5.2); SODIUM 138 meq/L (135-145)
[2016-11-30 08:00] VITALS: RESP 16
[2016-11-30] MEDS: DOCUSATE 100 MG CAPSULE PO SCH (08:38)
[2016-11-30] MEDS ORDERED: Pantoprazole Inj 40 MG in Normal Saline Flush 10 ML IVP SCH (09:00)
[2016-11-30] MEDS ORDERED: NORGESTIMATE ETHINYL ESTRADIOL PO SCH (09:00)
[2016-11-30] MEDS ORDERED: Ertapenem Inj 1 GM in Sodium Chloride 0.9% 100 ML IV SCH (10:15)
[2016-11-30 12:11] VITALS: TEMP 97.2
--- NOTE | 2016-11-30 13:27 | DCSUMMARY ---
Discharge Summary Admit Date: 12/25/16 Discharge Date: 11/30/16 Admitting Diagnosis: abdominal pain, nausea, vomiting. Discharge Diagnosis: Abdominal pain, nausea, vomiting. Primary Surgery and Date: Diagnostic laparoscopy with laparoscopic appendectomy 11/29/2016 Hospital Course: Patient is a 21-year-old who presented on Saturday with 2 days of abdominal pain nausea and vomiting. She had an extensive workup and the she was evaluated both in the open access clinic on the been in the emergency room on the . Etiology was unclear. She had a partial cecal malrotation and she had an appendix that appeared to have calcifications or fecaliths within it. We attempted conservative treatment. After 48 hours of antibiotics and bowel rest she was still having abdominal pain and was still very nauseated whenever she tried to drink. She was taken to the operating room for diagnostic laparoscopy with planned appendectomy. The only abnormality was her appendix with intraluminal filling defects and it was removed. Her ovaries, uterus, pelvic structures and all other intra-abdominal structures were unremarkable. Immediately postop the patient felt better. Her nausea resolved. She was having incisional pain but not deep inside pain. She is passing gas this morning. She is tolerating a regular diet. She is ready to be discharged home for outpatient follow-up. Final pathology is pending. Patient's white count increased today to 15,000. There are no signs of infection. She is afebrile. Her abdomen is benign. There is no signs of wound infections. It is to early for an intra-abdominal abscess. I think it's a stress reaction to surgery. She did get an extra dose of Invanz this morning. Exam - Vitals Vital Signs: Vital Signs Temperature 97.2 F Temperature Source Temporal Artery Scan Pulse Rate [Apical] 100 Pulse Rate [Pulse Oximeter 82 Right] Pulse Rate 87 Respiratory Rate 16 Blood Pressure [Right Arm] 124/81 Blood Pressure [Left Arm] 107/66 Blood Pressure 131/79 Pulse Ox 95 Oxygen Flow Rate 2 Oxygen Flow Rate 4 Oxygen Delivery Method Room Air Weight 98.702 kg - General General Appearance: POSITIVE: No Acute Distress, Cooperative - Respiratory Respiratory Exam: POSITIVE: Clear to Auscultation - Bilaterally, Breathing Non Labored - Cardiovascular Cardiovascular Exam: POSITIVE: RRR, No Murmur - GI/Abdominal GI/Abdominal Exam: POSITIVE: Normal Bowel Sounds, Non Distended, Soft Additional GI/Abdominal Exam Details: Dressings are clean and dry and intact. Abdominal exam is benign. Incisional tenderness only. - Neurological Neurological Exam: POSITIVE: Alert, Oriented x 3 - Psychiatric Psychiatric Exam: POSITIVE: Normal Affect, Normal Mood Data Perinent Studies: CT scan, extensive lab work, urinalysis, test, pelvic exam. Procedures: Diagnostic laparoscopy with laparoscopic appendectomy. Patient Problems - Patient Problem List (1) Lower abdominal pain of unknown etiology Current Visit: Yes Status: Acute Diagnosis Date: 11/25/16 Priority: High Comment: Status post appendectomy. Doing well. Ready to be discharged home for outpatient follow-up. (2) Nausea Current Visit: Yes Status: Acute Diagnosis Date: 11/25/16 Comment: Resolved. (3) Status post laparoscopic appendectomy Current Visit: Yes Status: Acute Diagnosis Date: 11/29/16 Priority: High Comment: Doing very well. Tolerating a regular diet. Abdominal pain and nausea resolved. White count elevated at 15,000. Etiology unclear. No evidence of infection.
== END 2016-11-30 14:08 | disposition home or self-care (01) | DRG 342 ==
LOC: ER 14:36 → MED/SURG 18:04 → UNDOADMOB 18:04 → OPS 11-29 11:07 → OBSVTOIN 11-29 13:12 → MED/SURG 11-29 13:38
PROVIDERS: ADMIT Surgery; ATTEND Surgery
PROC: 0DTJ4ZZ Resection of Appendix, Percutaneous Endoscopic Approach (ICD-10-PCS; principal; 2016-11-29 11:00)
DX: K35.80 Unspecified acute appendicitis (principal); D76.3 Other histiocytosis syndromes; R10.31 Right lower quadrant pain; R11.2 Nausea with vomiting, unspecified
CPT/HCPCS: 36415; 74176; 80048; 80053; 81001; 81003; 82150; 83690; 84703; 85025; 86140; 90656; 94761; 96361; 96374; 96375; 99284; J1100; J1170; J1335; J1885; J2001; J2250; J2270; J2405; J3010; J3490; J7030; J7050; J7120